=== PATIENT | male | born 1990 | race Two or more races ===

== ENCOUNTER 2018-08-30 11:29 | Emergency (ER) | payer SELFPAY ==
[~2018-08-30] VITALS: Ht 175.3 cm; Wt 70.3 kg
[2018-08-30] MEDS ORDERED: FLUORESCEIN SOD 1 MG TEST STRIP OP ONE (16:00)
[2018-08-30] MEDS ORDERED: TETRACAINE HCL 0.5% OPTH(EYE) SOLN 4ML RIGHTEYE ONE (16:00)
[2018-08-30] MEDS ORDERED: ceFAZolin IM 1GM/2.5ML STERILE WATER IM ONE (16:00)
[2018-08-30] MEDS ORDERED: OPHTHALMIC IRRIGATION SOLN 30ML OP ONE (16:00)
[2018-08-30] MEDS ORDERED: OPHTHALMIC IRRIGATION SOLN 30ML ONE (16:06)
[2018-08-30 16:30] VITALS: BP 145/72
== END 2018-08-30 17:21 | disposition home or self-care (01) ==
LOC: ER 11:29
DX: S05.01XA Injury of conjunctiva and corneal abrasion without foreign body, right eye, initial encounter (principal); X58.XXXA Exposure to other specified factors, initial encounter; Y93.89 Activity, other specified; Y99.8 Other external cause status; Y92.89 Other specified places as the place of occurrence of the external cause
CPT/HCPCS: 70480; 96372; 99284; J0690

== ENCOUNTER 2022-09-01 16:37 | Emergency (ER) | payer OTHER ==
[~2022-09-01] VITALS: Ht 180.3 cm; Wt 72.7 kg
[2022-09-01 17:43] VITALS: BP 154/91
[2022-09-01] MEDS ORDERED: IBUPROFEN 800 MG TAB PO ONE (17:45)
[2022-09-01] MEDS ORDERED: IBUP800T27 PO (18:07)
== END 2022-09-01 18:18 | disposition home or self-care (01) ==
LOC: ER 16:37
DX: S52.592A Other fractures of lower end of left radius, initial encounter for closed fracture (principal); Y93.39 Activity, other involving climbing, rappelling and jumping off; Y93.89 Activity, other specified; Y92.89 Other specified places as the place of occurrence of the external cause; Y99.8 Other external cause status
CPT/HCPCS: 29125; 73110

== ENCOUNTER 2023-09-29 18:07 | Emergency (ER) | payer OTHER ==
[~2023-09-29] VITALS: Ht 180.3 cm; Wt 72.0 kg
[~2023-09-29 18:07] MED LIST: IBUP-1456 PO
[2023-09-29] MEDS ORDERED: CEPH500C PO (21:14)
[2023-09-29] MEDS ORDERED: MUPI2OIN2 EX (21:14)
[2023-09-29] MEDS ORDERED: IBUP1TAB5 PO (21:14)
[2023-09-29] MEDS: CEPHALEXIN 250 MG CAP PO ONE (21:15)
[2023-09-29] MEDS: MUPIROCIN 2% OINT 15gm or 22gm TOP ONE (21:15)
[2023-09-29] MEDS: TETANUS-DIPTH-ACEL PERTUSSIS 0.5ML SYR Tdap IM ONE (21:15)
[2023-09-29] MEDS: LIDOCAINE 1% HCL (LOCAL ANESTH.) INJ 20ML MDV ID ONE (21:44)
[2023-09-29] MEDS: IBUPROFEN 600 MG TAB PO ONE (21:49)
[2023-09-29 21:59] VITALS: BP 137/84; PULSE 87; RESP 18; TEMP 98.7; O2SAT 98
== END 2023-09-29 21:59 | disposition home or self-care (01) ==
LOC: ER 18:07
DX: S01.112A Laceration without foreign body of left eyelid and periocular area, initial encounter (principal); R51.9 Headache, unspecified; Z79.1 Long term (current) use of non-steroidal anti-inflammatories (NSAID); W22.8XXA Striking against or struck by other objects, initial encounter; Y93.89 Activity, other specified; Y92.89 Other specified places as the place of occurrence of the external cause; Y99.8 Other external cause status
CPT/HCPCS: 12013; 70450; 99284; J2001